=== PATIENT | female | born 1965 ===

== ENCOUNTER 2017-01-03 00:09 | Emergency (ER) | payer MEDICAID ==
[2017-01-03 00:18] VITALS: BP 137/78; RESP 20; TEMP 98.2; O2SAT 99
[2017-01-03] MEDS ORDERED: Albuterol-Ipratrop 3 mg / 0.5 (3 ml) UD INH STA ×2 (00:50→03:24)
--- NOTE | 2017-01-03 00:54 | ED PDOC ---
Syncope/Near Syncope/Dizziness Time Seen by Provider: 01/03/17 00:37 Chief Complaint (Nursing): Weakness/Neurological Deficit Chief Complaint (Provider): Syncope, cough History Per: Patient History/Exam Limitations: no limitations Onset/Duration Of Symptoms: Mins Current Symptoms Are (Timing): Gone Now Fall Associated With With Symptoms: Yes Additional History Per: Patient Additional Complaint(s): The pt is a 51yo female, pmhx of asthma, HIV (undetectable viral load and normal CD4 per patient), presents to the ED for evaluation of head injury sustained due to a syncopal episode. Pt reports she has had worsening cough for the past week and today while coughing, she attempted to walk to the bathroom, passed out and fell, hitting the back of her head. Pt reports the episode was witnessed by her son who woke her up. She reports a mild headache, some nausea but denies any dizziness or vision changes. Pt is also complaining of mild swelling beneath her left eye, which she attributes to a possible insect bite. She reports using her asthma pump all week with no relief of her symptoms. The patient denies using blood thinners daily. Pt currently denies any other medical complaints. PCP: [facility] in [place] Past Medical History Reviewed: Historical Data, Nursing Documentation, Vital Signs Vital Signs: Last Vital Signs Temp 98.2 F 01/03/17 00:14 Pulse 84 01/03/17 00:14 Resp 20 01/03/17 00:14 BP 137/78 01/03/17 00:14 Pulse Ox 99 01/03/17 00:14 - Medical History PMH: Asthma, HIV - Surgical History Surgical History: No Surg Hx - Family History Family History: States: No Known Family Hx - Social History Current smoker - smoking cessation education provided: No Alcohol: None Drugs: Denies - Home Medications Home Medications: Ambulatory Orders Medication Instructions Recorded Albuterol 0.083% [Albuterol 3 ml IH Q4 PRN #20 neb 01/03/17 Sulfate 3 Ml] Doxycycline Monohydrate 100 mg PO BID #14 tablet 01/03/17 Prednisone 50 mg PO DAILY #5 tablet 01/03/17 - Allergies Allergies/Adverse Reactions: Allergies Allergy/AdvReac Type Severity Reaction Status Date / Time No Known Allergies Allergy Verified 01/03/17 00:13 Review of Systems ROS Statement: Except As Marked, All Systems Reviewed And Found Negative Eyes: Positive for: Other (swelling below left eye). Negative for: Pain, Vision Change Respiratory: Positive for: Cough Gastrointestinal: Positive for: Nausea Neurological: Positive for: Headache, Other (syncopal episode). Negative for: Dizziness Physical Exam - Reviewed Nursing Documentation Reviewed: Yes Vital Signs Reviewed: Yes - Physical Exam Appears: Positive for: Non-toxic, No Acute Distress Head Exam: Positive for: NORMAL INSPECTION, NORMOCEPHALIC. Negative for: ATRAUMATIC (swelling and tenderness noted to occipital scalp, no lacerations or active bleeding noted) Skin: Positive for: Normal Color, Warm, Dry Eye Exam: Positive for: EOMI, PERRL, Other (swelling under left eye, mild erythema noted. no tenderness noted.). Negative for: Periorbital swelling Neck: Positive for: Normal, Supple Cardiovascular/Chest: Positive for: Regular Rate, Rhythm Respiratory: Positive for: Wheezing (diffuse wheezing bilaterally). Negative for: Accessory Muscle Use, Respiratory Distress Gastrointestinal/Abdominal: Positive for: Soft. Negative for: Tenderness Extremity: Positive for: Normal ROM Neurologic/Psych: Positive for: Alert, Oriented. Negative for: Motor/Sensory Deficits - ECG ECG: Positive for: Interpreted By Me, Viewed By Me ECG Rhythm: Positive for: Normal QRS, Sinus Rhythm. Negative for: ST/T Changes Rate: 78 O2 Sat by Pulse Oximetry: 99 (RA) Pulse Ox Interpretation: Normal Medical Decision Making Medical Decision Making: Time: 44 Impression: Head injury, syncope, asthma exacerbation, allergic reaction to insect bite Plan: -- CT Head -- EKG -- Labs -- Duoneb 3ml INH -- Prednisone 60 mg PO --Reassess Time: 230 CT Head FINDINGS: Brain: No acute intracranial hemorrhage. No significant white matter disease. No edema. Ventricles: No significant ventriculomegaly. Bones: No acute displaced fracture. Sinuses: Air fluid levels within the bilateral maxillary sinuses. Mastoid air cells: Unremarkable as visualized. No mastoid effusion. IMPRESSION: No acute intracranial hemorrhage, or suspicious mass effect. Air-fluid levels in the bilateral maxillary sinuses. Time: 0325 Pt reports feeling much better. CT Scan normal, labs indicate no clinically significant abnormalities. Pt stable for d/c home; pt advised to f/u with PCP and to return to ED if symptoms worsen or new symptoms arise. Scribe Attestation: Documented by Kristy Layne acting as a scribe for Olena Ponce MD Provider Scribe Attestation: All medical record entries made by the Scribe were at my direction and personally dictated by me. I have reviewed the chart and agree that the record accurately reflects my personal performance of the history, physical exam, medical decision making, and the department course for this patient. I have also personally directed, reviewed, and agree with the discharge instructions and disposition. Disposition - Clinical Impression Clinical Impression: Syncope, Head injury, Asthma exacerbation, Insect bite - Patient ED Disposition Is Patient to be Admitted: No Doctor Will See Patient In The: Office Counseled Patient/Family Regarding: Studies Performed, Diagnosis, Need For Followup - Disposition Referrals: [facility] [Outside] Disposition: Routine/Home Disposition Time: 03:25 Condition: GOOD Additional Instructions: Follow up with your PCP in 2-3 days. Prescriptions: Albuterol 0.083% [Albuterol Sulfate 3 Ml] 3 ml IH Q4 PRN #20 neb PRN Reason: Wheezing Doxycycline Monohydrate 100 mg PO BID #14 tablet Prednisone 50 mg PO DAILY #5 tablet Instructions: Asthma (ED), Insect Bite or Sting (ED), Syncope (ED), Head Injury (ED) Forms: [facility] School/Work Excuse
[2017-01-03] MEDS ORDERED: Albuterol-Ipratrop 3 mg / 0.5 (3 ml) UD ONE ×2 (01:27→02:01)
--- NOTE | 2017-01-03 02:31 | CT ---
EXAM: CT Head Without Intravenous Contrast CLINICAL HISTORY: 51 years old, female; Injury or trauma; Fall; Initial encounter; Blunt trauma (contusions or hematomas); Additional info: Head injury TECHNIQUE: Axial computed tomography images of the head/brain without intravenous contrast. All CT scans at this facility use one or more dose reduction techniques, viz.: automated exposure control; ma/kV adjustment per patient size (including targeted exams where dose is matched to indication; i.e. head); or iterative reconstruction technique. Coronal and sagittal reformatted images were created and reviewed. COMPARISON: No relevant prior studies available. FINDINGS: Brain: No acute intracranial hemorrhage. No significant white matter disease. No edema. Ventricles: No significant ventriculomegaly. Bones: No acute displaced fracture. Sinuses: Air fluid levels within the bilateral maxillary sinuses. Mastoid air cells: Unremarkable as visualized. No mastoid effusion. IMPRESSION: No acute intracranial hemorrhage, or suspicious mass effect. Air-fluid levels in the bilateral maxillary sinuses.
[2017-01-03 03:30] VITALS: PULSE 78
--- NOTE | 2017-01-05 11:46 | CARD ---
APPROVED REPORT EKG Measurement Heart [id number] <Conclusion> Normal sinus rhythm Possible Left atrial enlargement Prolonged QT Abnormal ECG
== END 2017-01-03 03:42 | disposition home or self-care (01) ==
LOC: H.ER 00:09
DX: S09.90XA Unspecified injury of head, initial encounter (principal); W19.XXXA Unspecified fall, initial encounter; Y92.89 Other specified places as the place of occurrence of the external cause; J45.901 Unspecified asthma with (acute) exacerbation; T14.8 Other injury of unspecified body region; W57.XXXA Bitten or stung by nonvenomous insect and other nonvenomous arthropods, initial encounter; B20 Human immunodeficiency virus [HIV] disease